=== PATIENT | female | born 1945 | race Caucasian/White ===

== ENCOUNTER 2023-12-31 14:16 | Outpatient (RCR) | payer OTHER, SELFPAY ==
--- NOTE | 2024-01-01 08:24 | CTCCONSULT_ITS ---
[facility] [address] [place], [place] [address] Consultation Note Date: 12/31/2023 MR#: [id number] Name: JOHNNY WILSON : 1945 Dx: C34.12 Malignant neoplasm of upper lobe, left bronchus or lung Attending physician. Michael Zelaya MD Referring physician. 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 History of Present Illness: Patient is an 78-year-old with history of smoking had chest x-ray for esteban st pain and shortness of breath on 11/11/2023 revealing 20 mm pulmonary nodule left midlung 20 mm pulm onary left upper lobe. CT of the chest 11/27/2023 revealed 29 mm pulmonary mass posterior segment lef t upper lobe pulmonary mass 31 mm left lower lobe with subcentimeter nodules in right upper and lower lobe. Underwent biopsy of the left upper lobe nodule 11/27/2023 revealing invasive SCCA moderate dif ferentiated. PD-L1 pending. 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 Squamous SCCA left upper lobe 29 mm. PD-L1 pending. 2. Has additional similar sized lesion lower in left chest and subcentimeter lesions on the right. No peritracheal tracheobronchial or bronchopulmonary adenopathy. 3. PET scan now will be ordered for staging purposes. 4. Medical oncologist Dr. Green will be seeing patient soon. 5. Took the liberty of ordering foundation one this patient which will aid in treatment options for t he medical oncologist. 6. Thank you very much for allowing me to evaluate this patient. Cc: MD Uday Artis MD
== END 2024-01-24 23:59 | disposition home or self-care (01) ==
LOC: SCTC 14:16
PROVIDERS: PCP Student in an Organized Health Care Education/Training Program; Referring Provider Internal Medicine Hematology & Oncology; Visit Provider Radiology Therapeutic Radiology
DX: C34.12 Malignant neoplasm of upper lobe, left bronchus or lung (principal); Z87.891 Personal history of nicotine dependence
CPT/HCPCS: 99213; G0463

== ENCOUNTER → 2024-01-20 | Outpatient (CLI) | payer OTHER, SELFPAY ==
--- NOTE | 2024-01-20 08:45 | XR_ITS ---
EXAMINATION: PET/CT FUSION SKULL TO THIGH EXAM DATE AND TIME: January 20, 2024 0933 hours INDICATIONS: Diagnosis lung cancer, staging prior to treatment, CT chest November 27, 2023 29 mm pulmonary mass posterior segment right upper lobe, 31 mm pulmonary mass lingular segment left upper lobe CTDI:vol (mGy) 5.43 DLP: (mGycm) 495.98 PROCEDURE: 17.2 mCi FDG was administered intravenously To allow for distribution and uptake of radiotracer, the patient was allowed to rest quietly in a shielded room. Imaging was performed on an integrated 16-slice PET/CT scanner, with scanning from the skull base to the mid thigh. Serum blood glucose at the time of the injection was measured 175 mg/dL. CT scanning was performed without oral or intravenous contrast material. FINDINGS: Head and Neck: There is no marco a hypermetabolism in the neck. The visualized portions of the brain are normal in appearance on CT. Chest: Hypermetabolic pulmonary nodule posterior left upper lobe 23 mm 26 mm hypermetabolic pulmonary nodule lingular segment left upper lobe The smaller pulmonary nodules are better depicted on the high resolution CT chest November 27, 2023 No hypermetabolic mediastinal lymphadenopathy Abdomen and Pelvis: There is no marco a hypermetabolism in retroperitoneal or pelvic chains. The spleen is normal in size and FDG avidity. Musculoskeletal: Marrow uptake is within normal range. Severe osteopenia with chronic vertebral body compressions and kyphoplasties IMPRESSION: 23 mm hypermetabolic pulmonary nodule posterior left upper lobe 26 mm hypermetabolic pulmonary nodule lingular segment left upper lobe No hypermetabolic mediastinal lymphadenopathy No findings of metastatic disease in the abdomen or pelvis
== END | disposition home or self-care (01) ==
LOC: CDIM 07:32
PROVIDERS: Referring Provider Radiology Therapeutic Radiology; Visit Provider Radiology Therapeutic Radiology
DX: R91.8 Other nonspecific abnormal finding of lung field (principal); C34.12 Malignant neoplasm of upper lobe, left bronchus or lung
CPT/HCPCS: 78815; A9552

== ENCOUNTER → 2024-01-27 | Outpatient (CLI) | payer OTHER, SELFPAY ==
[2024-01-27 11:18] LABS: Basophils % (Auto) 0 % (0-2.5); Eosinophils # (Auto) 0.1 Thou/mm3 (0.0-0.5); Eosinophils % (Auto) 1 % (0-10); Hemoglobin 14.6 g/dL (12.0-16.0); Immature Granulocytes % (Auto) 0 % (0-0); Immature Granulocytes Auto 0.04 Thou/mm3 (0.00-0.00); Lymphocytes # (Auto) 1.7 Thou/mm3 (1.0-4.8); Lymphocytes % (Auto) 18 % (10-50); Mean Corpuscular HGB Conc 33.2 g/dl (31.0-37.0); Mean Corpuscular Hemoglobin 31.6 pg (25.0-35.0); Mean Corpuscular Volume 95 fL (80-100); Monocytes # (Auto) 0.5 Thou/mm3 (0.0-0.8); Monocytes % (Auto) 6 % (0-12); Neutrophils # (Auto) 6.9 Thou/mm3 (1.8-7.7); Neutrophils % (Auto) 75 % (37-80); Nucleated Red Blood Cell % 0 /100 WBC (0); Platelet Count 232 Thou/mm3 (140-440); RDW Standard Deviation 51.4 fL (36.4-46.3); Red Blood Count 4.62 Miln/mm3 (4.00-5.20); White Blood Count 9.2 Thou/mm3 (3.6-11.0)
[2024-01-27 11:48] LABS: Alanine Aminotransferase 18 U/L (10-49); Albumin, Serum 4.5 gm/dL (3.4-4.8); Alkaline Phosphatase 95 U/L (46-116); Anion Gap 11 (7-16); Aspartate Amino Transferase 15 U/L (0-34); BUN/Creatinine Ratio 16 Ratio (12-20); Bilirubin,Total 0.8 mg/dL (0.3-1.2); Blood Urea Nitrogen 18 mg/dL (9-23); Calcium 10.3 mg/dL (8.3-10.6); Calcium (Corrected) 10.3 mg/dL (8.5-10.1); Chloride 102 mMol/L (98-107); Creatinine (Component) 1.1 mg/dL (0.6-1.3); Globulin 2.3 gm/dL (2.3-3.5); Glucose 137 mg/dL (74-106); Osmolality,Calculated 279 (275-295); Potassium 3.3 mMol/L (3.4-5.1); Sodium 138 mMol/L (136-145); Thyroid Stimulating Hormone 1.61 uIU/mL (0.55-4.78); Total Protein 6.8 gm/dL (5.7-8.2); eGFR 51 See Note
[2024-01-30 06:53] LABS: T3,Total* 92 ng/dL (76-181)
== END | disposition home or self-care (01) ==
PROVIDERS: PCP Student in an Organized Health Care Education/Training Program; Referring Provider Internal Medicine Hematology & Oncology; Visit Provider Internal Medicine Nephrology
DX: I12.9 Hypertensive chronic kidney disease with stage 1 through stage 4 chronic kidney disease, or unspecified chronic kidney disease (principal); N18.9 Chronic kidney disease, unspecified; D63.1 Anemia in chronic kidney disease; C34.12 Malignant neoplasm of upper lobe, left bronchus or lung
CPT/HCPCS: 36415; 80053; 84443; 84480; 85025

== ENCOUNTER → 2024-02-07 | Outpatient (CLI) | payer OTHER, SELFPAY ==
--- NOTE | 2024-02-07 11:00 | XR_ITS ---
Examination: MRI brain with intravenous contrast Technique: Multiple axial sagittal coronal brain MRI images post intravenous ministration 14 cc gadolinium Exam date and time: February 07, 2024 1112 hrs. Indications: Diagnosis malignant neoplasm upper lobe left bronchus or lung 3 months ago, dizziness episodes beginning 3 months ago Findings: Ventricles are not enlarged No mass effect upon the ventricular system 9 x 8 x 9 mm enhancing lesion right temporal lobe tip near the sphenoid ridge, axial image 7, coronal image 8 Right parafalcine parietal convexity enhancing mass, axial image 22, sagittal image 11, 22 x 20 x 18 mm No acute hemorrhage either intra or extra-axial Impression: 9 x 8 x 9 mm mm enhancing lesion right temporal lobe tip near the sphenoid ridge 22 x 20 x 18 mm right parafalcine parietal convexity enhancing mass Both of these lesions may represent meningiomas, other etiologies including metastatic lesions not excluded, clinical correlation advised
== END | disposition home or self-care (01) ==
LOC: SMRI 10:17
PROVIDERS: Referring Provider Internal Medicine Hematology & Oncology; Visit Provider Internal Medicine Hematology & Oncology
DX: G93.89 Other specified disorders of brain (principal); C34.12 Malignant neoplasm of upper lobe, left bronchus or lung
CPT/HCPCS: 70552; A9579

== ENCOUNTER 2024-02-10 07:59 | Outpatient (CLI) | payer OTHER, SELFPAY ==
[2024-02-06 13:40] VITALS: BMI 30.4
[2024-02-09 11:07] LABS: Basophils % (Auto) 0 % (0-2.5); Eosinophils # (Auto) 0.2 Thou/mm3 (0.0-0.5); Eosinophils % (Auto) 2 % (0-10); Hematocrit 41.9 % (36.0-46.0); Immature Granulocytes % (Auto) 1 % (0-0); Immature Granulocytes Auto 0.04 Thou/mm3 (0.00-0.00); Lymphocytes # (Auto) 1.6 Thou/mm3 (1.0-4.8); Lymphocytes % (Auto) 19 % (10-50); Mean Corpuscular HGB Conc 33.4 g/dl (31.0-37.0); Mean Corpuscular Hemoglobin 31.5 pg (25.0-35.0); Mean Corpuscular Volume 94 fL (80-100); Monocytes # (Auto) 0.5 Thou/mm3 (0.0-0.8); Monocytes % (Auto) 6 % (0-12); Neutrophils % (Auto) 72 % (37-80); Nucleated Red Blood Cell % 0 /100 WBC (0); Platelet Count 229 Thou/mm3 (140-440); Red Blood Count 4.44 Miln/mm3 (4.00-5.20); White Blood Count 8.3 Thou/mm3 (3.6-11.0)
[2024-02-09 11:29] LABS: Blood Urea Nitrogen 24 mg/dL (9-23); Creatinine (Component) 1.2 mg/dL (0.6-1.3); Estimated Creatinine Clearance 32.8 mL/min (>60); eGFR 46 See Note
[2024-02-09 12:40] LABS: INR 0.9 (0.9-1.3); Partial Thromboplastin Time 26.1 Seconds (22.0-36.0); Prothrombin Time 10.2 Seconds (9.0-12.2)
[2024-02-10] VITALS (16 sets, daily range): BP systolic 120–162; BP diastolic 55–97; PULSE 58–78; RESP 16–24; TEMP 36.4–36.8; O2SAT 89–98
--- NOTE | 2024-02-10 09:00 | XR_ITS ---
Examination: IR venous implantation Port-A-Cath Ultrasound-guided needle placement right internal jugular vein. Fluoroscopy AP Chest, portable single view Exam date and time: February 10, 2024 0952 hours INDICATIONS: Diagnosis lung cancer, need for long-term intravenous antibiotic therapy. Informed consent provided Technique: A timeout was completed, verifying correct patient, procedure, site, positioning, and special equipment if applicable The patient was placed in a dependent position appropriate for central line placement based on the vein to be cannulated. The patient's right neck was prepped and draped in sterile fashion. Maximum Sterile Barrier Technique used including cap, mask, sterile gown, sterile gloves, and sterile full body drape. If ultrasound technique used: sterile gel and sterile probe covers. Hand Hygiene performed using proper scrub, soap and water, or alcohol-based hand rub. Site right portable apparatus utilized to confirm patency of the right internal jugular vein Utilizing ultrasonographic guidance successful 20-gauge needle puncture into the right internal jugular vein Ultrasound images were recorded and stored. Successful micropuncture with a 21-gauge needle was performed. 0.18 wire guide was introduced into the IVC under fluoroscopic guidance. Blunt dissection utilized for subcutaneous pocket and the upper right chest Port-A-Cath reservoir placed in the pocket and connected to 23 cm 8 [place] Port-A-Cath line placed through a venous sheath into the superior vena cava under fluoroscopic guidance Perfusion to the extremity distal to the point of catheter insertion was checked and found to be adequate The attending radiologist was present for the entire procedure Estimated blood loss2 cc. Findings: Under fluoroscopy, the tip of the Port-A-Cath is in good position in the vena cava. Portable chest x-ray, post Port-A-Cath placement, as ordered. Impression: Successful ultrasound-guided needle placement right internal jugular vein. Successful IR venous implantation Port-A-Cath Fluoroscopy 0.1 minute radiation dose 2.36 milligray 1 spot portable chest film. AP portable chest completion procedure demonstrates satisfactory position Port-A-Cath tip SVC. May use Port-A-Cath
[2024-02-10] MEDS: SODIUM CHLORIDE 0.9% 500 ML 500 ML 20 ML IV (10:00)
[2024-02-10] MEDS: ceFAZolin 1 GM in SODIUM CHLORIDE 0.9% 100 ML IV (10:05)
[2024-02-10] MEDS: fentaNYL CIT INJ 50 mCg/ML AMP 2ML 75 MCG IVP (10:40)
[2024-02-10] MEDS: LIDOCAINE INJ PF 1% 30 ML VIAL 11 ML INFL (10:42)
[2024-02-10] MEDS: LIDOCAINE 1% W/EPI 1:100K 20 ML VIAL INFL (10:42)
[2024-02-10] MEDS: HEPARIN SOD LOCK SYR 100 UNIT/ML 500 UNIT STFIELD (10:42)
[2024-02-10] MEDS: ceFAZolin INJ 1 GM VIAL STFIELD (10:42)
--- NOTE | 2024-02-10 11:38 | PC.NURSE ---
1113 patient is awake,alert, breathing unlabored, s/p port placement , dressing to right upper chest dry with no bleeding, report given to Marty GUZMAN, patient to recovery for 1 hr.
== END 2024-02-10 12:31 | disposition home or self-care (01) ==
PROVIDERS: Radiology Diagnostic Radiology; PCP Internal Medicine Hematology & Oncology; Referring Provider Internal Medicine Hematology & Oncology; Visit Provider Internal Medicine Hematology & Oncology
DX: C34.12 Malignant neoplasm of upper lobe, left bronchus or lung (principal); Z01.818 Encounter for other preprocedural examination
CPT/HCPCS: 36558; 36415; 76937; 77001; 82565; 84520; 85025; 85610; 85730; C1769; C1788; C1894; J0690; J1642; J3010; J3490; J7040; J7050

== ENCOUNTER → 2024-02-20 | Outpatient (CLI) | payer OTHER, SELFPAY ==
--- NOTE | 2024-02-20 08:55 | XR_ITS ---
Examination: IR staple removal at Port-A-Cath insertion site Exam date and time: February 20, 2024 0855 hrs. Indications: Status post Port-A-Cath insertion February 10, 2024, patient returns for removal of staple closure devices at the Port-A-Cath insertion site Technique And Findings: Informed consent provided. Timeout performed. Skin prepped over the Port-A-Cath insertion site and sterile drape applied hand hygiene Successful removal of the closure chyna at the Port-A-Cath insertion site Estimated blood loss 0 cc Patient instable condition at completion procedure Impression: Successful IR staple removal at the Port-A-Cath incision site
== END | disposition home or self-care (01) ==
PROVIDERS: PCP Student in an Organized Health Care Education/Training Program; Referring Provider Internal Medicine Hematology & Oncology; Visit Provider Internal Medicine Hematology & Oncology
DX: Z48.02 Encounter for removal of sutures (principal)

== ENCOUNTER 2024-02-24 10:58 | Outpatient (RCR) | payer OTHER, SELFPAY ==
--- NOTE | 2024-01-27 21:02 | CTCCONSULT_ITS ---
[address] [address] RE: JOHNNY WILSON.: 1945 AGE: 78 DATE OF CONSULTATION: 01/27/2024 DIAGNOSIS: Malignant neoplasm of upper lobe, left bronchus or lung lung cancer C34.12 REFERRING PHYSICIAN: Rocky Rhodes PRIMARY PHYSICIAN :Gomez Green REASON FOR CONSULTATION: Establishing care for left lung cancer HISTORY OF PRESENT ILLNESS: 78-year-old woman with extensive smoking history with a new diagnosis of lung cancer. Patient has be en smoking about 2 packs a day for 50 years and recently reduced to 1 pack a day. Patient is a Veracyte nt smoker. 01/20/[address] scan showed 2 nodules in the left upper lobe. 23 mm hypermetabolic pulmonary nodul e in the posterior left upper lobe and 26 mm hypermetabolic pulmonary nodule lingular segment left up per lobe no other hypermetabolic mediastinal lymphadenopathy 12/31/2023 pathology showed left lung biopsy with squamous cell cancer. No targetable mutations. Lexie or mutation burden high PAST MEDICAL HISTORY: Obesity FAMILY HISTORY: Cancer History - Father - SKIN Cancer History - - MATERNAL GRANDMOTHER UTERINE SOCIAL HISTORY: Occupational History - RETIRED TEACHER Education Level - College Graduate, Master's degree Exercise Regularly - No Marital Status - Single Tobacco Use Note - SMOKED 1 PPD X 50YRS - SMOKING 10 CIGARETTES/DAY NOW ETOH Use Note - DENIES Drug Note - DENIES Social History Note 2 - LIVES WITH SON PULMONOLOGY PHYSICIAN HISTORY: Menarche - Age - 11 Menopause1 - 1996 - 2 Live Births - 2 Age 1st - 25 Gynecological Note - 2 MISCARRIAGES MEDICATIONS: albuterol sulfate losartan furosemide traZODone lorazepam Paxil [paroxetine hcl] ALLERGIES: No Known Drug Allergies REVIEW OF SYSTEMS SECURITY SYSTEM ENGINEER: No headache, seizures or blurring of vision. GI: No nausea, vomiting, diarrhea or constipation. CVS: No palpitations or angina pains. Respiratory: No cough, chest pain or shortness of breath. VITAL SIGNS: Date 01/27/2024 Time 8:55 AM Vital Signs, Weight and PS ? ??T (F) (F) 97 ??P 80 ??B/P (mmHg) 135/75 ??Height (in) (inch) 61 ??Weight (lb) (lb) 156 ??BSA(D) (m*2) 1.7 ??Percent Weight Change -3 PHYSICAL EXAMINATION: Alert oriented x 4 chest is clear to auscultation. No wheezes or rales audible. CVS: Rhythm regular, no murmurs or gallops present. Abdomen is soft. No hepatosplenomegaly. Extremities: No pedal edema or cyanosis. Ecog-2 LABORATORY DATA: Date 01/27/2024 Time 10:20 AM CBC ? ??RDW (RBC DISTRIBUTION WDTH) SD (fl) 51.4 H ??IMMATURE GRANULOCYTES, AUTO (Thou/mm3) 0.04 H Chemistry ? ??GLUCOSE,RANDOM (mg/dL) 137 H ??POTASSIUM (mmol/L) 3.3 L ??CALCIUM SERUM (CORRECTED) (mg/dL) 10.3 H ? ??Initials ZZZ Other Labs ? ??eGFR (See Note) 51 L ASSESSMENT: 1) T3 N0 M0 invasive squamous cell cancer at least stage II left upper lobe cancer Patient have 2 lung nodules in the same lobe thus making T3 no lymph nodes seen in the PET CT scan Patient have a chronic smoking history as well as advanced age PLAN: ??PFT Referral to cardiothoracic surgeon. Patient is a high risk for any surgical intervention but will ge t opinion. Refer to radiation oncology for possible EBRT for curative intent Patient cannot get any curative therapy then we will treat with Keytruda as palliative therapy Not a good candidate for concurrent chemoradiation or chemotherapy secondary to her advanced age and comorbidities 2) Hypercalcemia likely from malignancy -asymptomatic will repeat labs. Will get IV fluids in the in fusion room. Repeat calcium and if it persistently high will get her Reclast. 3) Chronic smoker and current smoker-counseled but patient is not ready to quit 4) Obesity diet and exercise 5) Hypokalemia patient's potassium is low. My nurse will contact the patient to advise her to start taking potassium 10 mill equivalent daily for 1 week and follow-up with the primary care SERENITY ORDERS: Follow Up 3 Week + Comprehensive Metabolic Panel - 12 + CBC with Auto Diff Thyroid Stimulating Hormone + Assay Triiodothyronine (T3) MRI + Brain + With Contrast RETURN TO CLINIC: cc: Donal Green, Referring: Rocky Rhodes Electronically Signed {Object.Sanct_Date} at {Object.Sanct_Time} {Object.Sanct_ID*PnP.NameFL@}, {Object.Sanct_ID*PnP.Suffix@U} Patient: JOHNNY WILSON : 1945 MR#: [id number] Account: [id number] FOLLOW UP NOTE Page 3 of 4
--- NOTE | 2024-01-30 16:29 | CTCTXPLN_ITS ---
[facility] [address] [place], [place] [address] Physician Clinical Treatment Planning Note Date of Service: 01/30/2024 Name: JOHNNY WILSON : 1945 The patient has agreed to proceed with Radiation therapy. Tests and supporting medical records were interpreted to assist in defining the tumor location and extent of disease. Further imaging will be necessary to contour and delineate the volume to which the XRT will be provided. A. Treatment Intent: Curative B. C. D. Modality: 6 MV E. Requested Technique: SBRT F. Treatment Site: Left upper lobe G. Critical structures to be contoured on plan: H. In order to accomplish this plan, I am ordering/Prescribing the followin. Simulations (s) will be performed to accomplish a reproducible treatment position, to determine op timal treatment portals/beam arrangements, to design beam modifying devices and verify treatment port als on patient prior to the commencement of Radiation Therapy. 2. Devices; for immobilization and beam shaping: Vac-Katarzyna 3. CT Guidance for placement of XRT griffith Scan area: 4. Portal images Frequency: 5. Invivo transit dose measurement once per week on all VMAT patients. 6. Special Physics Consult Requested for: 7. Other requests: Special procedure for SBRT I. Dose Objectives: Curative Electronically signed by: Eugene Dowell M.D. 01/30/2024 4:26 PM
--- NOTE | 2024-01-30 16:42 | CTCTXPLNST_ITS ---
2Radiation Oncology Treatment Planning Sheet Name: JOHNNY WILSON MR#: [id number] : 1945 Dx: C34.12 Malignant neoplasm of upper lobe, left bronchus or lung Date of Service: 01/30/2024 Account #: ?? Pt Treatment Intent: curative palliative other: Stage: Procedure CPT # Ordered Spec. Procedure 63401 1 Fermin Complex (set-up) 95455 Chest/vaklokT1- T 10 2 Fermin Simple 56789 IMRT Plan 36410 2 MLC Devices VMAT 73581 12 Fermin 3 D 24055 TRTMT dev Complex 76304 vaklok 1 TRTMT dev simple 31693 Basic Bandar 14834 14 Special Dosimetry 96438 Spec Physics 65185 Port Films 97316 SRS Cranial/1FX 86105 SBR 5 FX or Less /ex: 5 = 5 fx 54172 2 sites (5 each )5000 10 IMRT Simple 69946 IMRT Complex 13195 IGRT 11530 10 Rad del com 6- 55886 Rad del com 01-12 77561 Cont Med Physics 44446 4 Treatment Planning 62138 2 Rad del com 20 mev 62560 Rad del inter 08-03 26765 Rad del inter 01-12 19336 Rad del simple 6- 85485 Rad del simple 01-12 16987 Special Port Plan 82335 TRTMT dev inter 05371 Isodose Complex 42383 Isodose simple 93419 Resp Motion Mgmt Simulation 04271 Placement of Fiducial Markers 13286 Electronically Signed By: Eugene Dowell MD, MICAHR 01/30/2024 4:39 PM
== END 2024-02-24 23:59 | disposition home or self-care (01) ==
LOC: SCTC 10:58
PROVIDERS: PCP Student in an Organized Health Care Education/Training Program; Referring Provider Student in an Organized Health Care Education/Training Program; Visit Provider Internal Medicine Hematology & Oncology
DX: Z51.0 Encounter for antineoplastic radiation therapy (principal); C34.12 Malignant neoplasm of upper lobe, left bronchus or lung; F17.210 Nicotine dependence, cigarettes, uncomplicated; E87.6 Hypokalemia; E66.9 Obesity, unspecified; Z68.29 Body mass index [BMI] 29.0-29.9, adult
CPT/HCPCS: 77014; 77290; 77300; 77301; 77334; 77338; 77373; 77470; 99213; G0463

== ENCOUNTER → 2024-02-26 | Outpatient (CLI) | payer OTHER, SELFPAY ==
[2024-02-26 12:42] LABS: Albumin, Serum 4.4 gm/dL (3.4-4.8); Anion Gap 7 (7-16); BUN/Creatinine Ratio 15 Ratio (12-20); Blood Urea Nitrogen 17 mg/dL (9-23); Carbon Dioxide 26.4 mMol/L (20.0-31.0); Chloride 105 mMol/L (98-107); Creatinine (Component) 1.1 mg/dL (0.6-1.3); Glucose 149 mg/dL (74-106); Osmolality,Calculated 280 (275-295); Phosphorous 2.7 mg/dL (2.4-5.1); Potassium 4.2 mMol/L (3.4-5.1); Sodium 138 mMol/L (136-145); eGFR 51 See Note
== END | disposition home or self-care (01) ==
LOC: COPL 11:52
PROVIDERS: PCP Student in an Organized Health Care Education/Training Program; Referring Provider Student in an Organized Health Care Education/Training Program; Visit Provider Student in an Organized Health Care Education/Training Program
DX: I12.9 Hypertensive chronic kidney disease with stage 1 through stage 4 chronic kidney disease, or unspecified chronic kidney disease (principal); N18.9 Chronic kidney disease, unspecified
CPT/HCPCS: 36415; 80069

== ENCOUNTER 2024-03-08 16:56 | Emergency (ER) | payer OTHER, SELFPAY ==
[2024-03-08 17:06] VITALS: BP 171/93; PULSE 78; RESP 20; TEMP 36.7; O2SAT 93; BMI 31.2
[2024-03-08 17:44] VITALS: BP 149/68
--- NOTE | 2024-03-08 17:48 | PD.EDEXREM ---
ED Extremity Problem RME/HPI General Chief complaint: Extremity Problem,Nontraumatic Stated complaint: RIGHT LEG PAIN FROM KNEE DOWN Time Seen by Provider: 03/08/24 17:12 Arrival date/time: 03/08/24 16:56 78-year-old female reports with complaints of sudden onset of severe muscle cramping of the right lower leg. Patient states while walking she caught a cramp in the leg that shot up to her thigh. She denies any bruising swelling injury trauma numbness tingling decrease in range of motion redness or rash. Patient states while sitting the emergency department the pain has resolved. She also denies shortness of breath or chest pain weakness fatigue fever chills. Patient denies taking any medications for pain Limitations: no limitations Related Data Home Medications ?Medication ?Instructions ?Recorded ?Confirmed albuterol sulfate 2.5 mg/3 mL 3 ml Q6H PRN Shortness of Breath 11/07/21 02/10/24 (0.083 %) solution for nebulization ipratropium bromide 21 mcg (0.03 2 spray intranasal BID PRN 11/07/21 02/10/24 %) nasal spray Congestion multivitamin 1 tab QDAY 11/07/21 02/10/24 allopurinol 300 mg tablet 300 mg PO DAILY 11/27/23 02/10/24 amlodipine 5 mg tablet 10 mg PO QDAY 11/27/23 02/10/24 lorazepam 0.5 mg tablet 0.5 mg PO DAILY PRN Anxiety 11/27/23 02/10/24 trazodone 50 mg tablet 50 mg PO HS 11/27/23 02/10/24 furosemide 20 mg tablet (Lasix) 20 mg PO QDAY 02/10/24 02/10/24 losartan 25 mg tablet 25 mg PO QDAY 02/10/24 02/10/24 paroxetine HCl 30 mg tablet 30 mg PO QDAY 02/10/24 02/10/24 potassium chloride 10 mEq 10 meq PO QDAY 02/10/24 02/10/24 tablet,extended release Allergies Allergy/AdvReac Type Severity Reaction Status Date / Time No Known Allergies Allergy Verified 03/08/24 16:58 Review of Systems Constitutional Constitutional: Denies chills and Denies fatigue Cardiovascular Cardiovascular: Denies chest pain and Denies dyspnea Respiratory Respiratory: Denies cough and Denies dyspnea Gastrointestinal Gastrointestinal: Denies nausea and Denies vomiting Musculoskeletal Musculoskeletal: Reports arthralgias, Denies deformity, Denies joint swelling, Denies numbness and Denies tingling Integumentary/Breasts Skin/Breast: Denies erythema, Denies rash, Denies skin pain, Denies unusual bruising and Denies wounds Neurologic Neurologic: Denies numbness and Denies tingling Endocrine Endocrine: Denies fatigue Hematologic/Lymphatic Hematologic/Lymphatic: Denies easy bleeding and Denies easy bruising Past Medical History Past Medical History NEUROLOGIC: Negative Neurological Disorders, Cerebrovascular Accident, Dementia, Alzheimer's Disease, Seizures or Epilepsy CARDIAC: Positive Cardiac Arrhythmia, Atrial Fibrillation (per pt sometimes watch alerts afib, lei aware and appointment made), Hypercholesterolemia and Hypertension; Negative Cardiac Disorders, Myocardial Infarction, Angina, Congestive Heart Failure or Edema RESPIRATORY: Positive Chronic Obstructive Pulmonary Disease (COPD) and Bronchitis; Negative Asthma or Sleep Apnea GASTROINTESTINAL: Negative Gastrointestinal Disorders GENITOURINARY: Positive Renal Disease; Negative Genitourinary Disorders or Kidney Stones REPRODUCTIVE: Positive Previous Pregnancies (2 cesection) MUSCULOSKELETAL: Positive Osteoporosis, Fractures (right hip and crush vertabrea) and Osteomyelitis; Negative Musculoskeletal Disorders ENT: Positive Cataracts ENDOCRINE: Positive Diabetes Mellitus Type 2 and Hypothyroidism (during ); Negative Diabetes Mellitus Type 1 HEMATOLOGIC: Negative Blood Disorders or Anemia PSYCHO/SOCIAL: Positive Depression, Anxiety and Post Traumatic Stress Disorder; Negative Schizophrenia or Bipolar Disorder OTHER HISTORY: Positive Falls and Lung Cancer (secondary to skin cancer); Negative Autoimmune Disease, Blood Transfusions, Blood Transfusion Reaction, Anesthesia Reactions, Organ Transplant, Radiation Therapy, MRSA or Chicken Pox ([place]) Family History FAMILY HISTORY: Negative Family Psychiatric Problems, Family Respiratory Disorders, Family Cardiac Disorders, Family Gastrointestinal Problems, Family Cancer (father skin cancer), Family Surgery or Family Anesthesia Reaction Surgical History SURGICAL: Positive Ear Surgery (in kindergarden), Tonsillectomy, Gastric Bypass Surgery, Hysterectomy and Section; Negative Cardiac Surgery, Pacemaker or Organ Transplant Social History SMOKING STATUS: Never smoker ED Exam General Limitations: Present no limitations General appearance: Present alert and in no apparent distress Expanded Lower Extremity Exam Hip/Pelvis exam: Present normal inspection and full ROM Upper leg exam: Present normal inspection and full ROM Knee exam: Present normal inspection and full ROM Lower leg exam: Present normal inspection and full ROM; Absent tenderness, swelling, ecchymosis, deformity or palpable cord Ankle exam: Present normal inspection and full ROM Foot/toe exam: Present normal inspection and full ROM Neurovascular/Tendon exam: Present normal capillary refill and pulse deficit Gait: observed and normal Neurological Exam Neurological exam: Present alert, oriented X3 and CN II-XII intact Psychiatric Psychiatric exam: Present normal affect and normal mood Skin Skin exam: Present warm, dry, intact and normal color Course Course Course Narrative: 78 y.o. female reports with c/o right lower leg pain. Right leg exam normal with no evidence of DVT pain resolved while patient in exam room. Patient is stable nontoxic-appearing with stable vital signs no cardiac or respiratory complaints. Differential diagnosis includes muscle cramping versus low potassium versus trauma versus injury. Quality Measures none Vital Signs Vital signs: Vital Signs Temperature 98.1 F 03/08/24 17:06 Pulse Rate 78 03/08/24 17:06 Respiratory Rate 20 03/08/24 17:06 Blood Pressure 171/93 H 03/08/24 17:06 Pulse Oximetry (%) 93 L 03/08/24 17:06 Oxygen Delivery Method Room Air 03/08/24 17:06 Extremity Problem Patient data External records reviewed:: None Clinical information provided by:: patient Social determinants that could affect healthcare access:: none Patient has the following chronic illnesses:: none How is presenting disease/condition affected by chronic disease/condition?: no chronic disease Evaluation data The following diagnostics were reviewed and interpreted by me:: other (specify) Lab and/or radiology exams considered but not ordered:: none Interpretation Summary: none Medications / Prescriptions Medications or Prescriptions considered but not ordered:: none Medication administrations:: none Consultations Consultation(s) initiated? (list below): No Diagnosis Most likely diagnosis given after review of the tests above:: Muscle cramp Admission Indicated Admission indicated?: not indicated Admission Request Was there a request for admission?: No Disposition Plan Disposition Plan: Discharge Discharge Attestation Discharge Attestation: The patient and all family members were given an opportunity to ask questions and understood the discharge instructions. Discharge instructions specifically effects, indications for sooner follow up or return to the emergency department, and the expected course of current diagnosis. Patient condition: Stable Discharge Plan Plan Patient Disposition: HOME (Self Care) Prescriptions/Referrals Prescriptions/Med Rec: No Action multivitamin Tablet 1 tab QDAY albuterol sulfate 2.5 mg /3 mL (0.083 %) solution for nebulization 3 ml Q6H PRN (Reason: Shortness of Breath) Patient Comments: USE 1 VIAL VIA NEBULZIER EVERY 6 HOURS NEEDED ipratropium bromide 21 mcg (0.03 %) spray,non-aerosol 2 spray INTRANASAL BID PRN (Reason: Congestion) Patient Comments: SPRAY 2 SPRAYS IN EACH NOSTRIL TWICE A DAY FOR 90 DAYS trazodone 50 mg Tablet 50 mg PO HS amlodipine 5 mg Tablet 10 mg PO QDAY lorazepam 0.5 mg Tablet 0.5 mg PO DAILY PRN (Reason: Anxiety) allopurinol 300 mg Tablet 300 mg PO DAILY potassium chloride 10 mEq Tablet Extended Release 10 meq PO QDAY paroxetine HCl 30 mg Tablet 30 mg PO QDAY losartan 25 mg Tablet 25 mg PO QDAY furosemide [Lasix] 20 mg Tablet 20 mg PO QDAY Problem List Clinical Impression: Muscle pain Patient/Caregiver Discharge Instructions Discharge Activity: activity as tolerated Education Materials: ED Myalgias Additional Instructions: Take medication such as Tylenol ibuprofen as needed for pain follow-up with your primary care provider as needed. Return to emergency department if symptoms should worsen Print Language: Armenian Stand Alone Forms: Theresa Award Info., Patient Portal Info Letter
== END 2024-03-08 18:18 | disposition home or self-care (01) ==
LOC: SERX 18:41
PROVIDERS: Emergency Provider Emergency Medicine; PCP Physician Assistant
DX: M79.18 Myalgia, other site (principal)
CPT/HCPCS: 99281

== ENCOUNTER 2024-03-25 10:36 | Outpatient (RCR) | payer OTHER, SELFPAY ==
--- NOTE | 2024-03-23 12:51 | CTCTRTNOTE_ITS ---
[facility] [address] [place], [place] [address] Weekly Management Date: 03/23/2024 ?? Name: JOHNNY WILSON : 1945 A. Patient is currently at thousand to lingular site. Completed 5000 to the left upper lobe. B. Patient is tolerating treatment well. BP 172/80 C. Resume radiation therapy. Completes XRT to both sites by next week. Scheduled to receive Keytruda soon. Has port Electronically signed by: Eugene Dowell M.D. 03/23/2024 12:48 PM
== END 2024-03-26 23:59 | disposition home or self-care (01) ==
LOC: SCTC 10:36
PROVIDERS: PCP Student in an Organized Health Care Education/Training Program; Referring Provider Student in an Organized Health Care Education/Training Program; Visit Provider Radiology Therapeutic Radiology
DX: Z51.0 Encounter for antineoplastic radiation therapy (principal); C34.12 Malignant neoplasm of upper lobe, left bronchus or lung
CPT/HCPCS: 77336; 77373

== ENCOUNTER → 2024-04-05 | Outpatient (CLI) | payer OTHER, SELFPAY ==
[2024-04-05 13:27] LABS: Uric Acid 6.8 mg/dL (3.1-7.8)
== END | disposition home or self-care (01) ==
PROVIDERS: PCP Student in an Organized Health Care Education/Training Program; Referring Provider Student in an Organized Health Care Education/Training Program; Visit Provider Student in an Organized Health Care Education/Training Program
DX: I12.9 Hypertensive chronic kidney disease with stage 1 through stage 4 chronic kidney disease, or unspecified chronic kidney disease (principal); N18.9 Chronic kidney disease, unspecified
CPT/HCPCS: 36415; 84550

== ENCOUNTER 2024-04-23 08:53 | Outpatient (RCR) | payer OTHER, SELFPAY ==
--- NOTE | 2024-03-30 13:17 | CTCTRTNOTE_ITS ---
[facility] [address] [place], [place] [address] Weekly Management Date: 03/30/2024 ?? Name: JOHNNY WILSON : 1945 A. Patient who completed 5000 cGy to the left upper lobe is finishing 5000 cGy to the left lingular area today. Both were treated in 5 fractions via SBRT. Patient tolerated treatment well and will be seen in 2 weeks for follow-up. Electronically signed by: Eugene Dowell M.D. 03/30/2024 1:15 PM
[2024-04-02 10:53] LABS: Basophils % (Auto) 0 % (0-2.5); Eosinophils % (Auto) 1 % (0-10); Hematocrit 41.9 % (36.0-46.0); Hemoglobin 14.7 g/dL (12.0-16.0); Immature Granulocytes % (Auto) 0 % (0-0); Immature Granulocytes Auto 0.02 Thou/mm3 (0.00-0.00); Lymphocytes # (Auto) 0.7 Thou/mm3 (1.0-4.8); Lymphocytes % (Auto) 11 % (10-50); Mean Corpuscular HGB Conc 35.1 g/dl (31.0-37.0); Mean Corpuscular Hemoglobin 32.6 pg (25.0-35.0); Mean Corpuscular Volume 93 fL (80-100); Monocytes # (Auto) 0.5 Thou/mm3 (0.0-0.8); Monocytes % (Auto) 8 % (0-12); Neutrophils # (Auto) 5.1 Thou/mm3 (1.8-7.7); Neutrophils % (Auto) 80 % (37-80); Nucleated Red Blood Cell % 0 /100 WBC (0); Platelet Count 211 Thou/mm3 (140-440); RDW Standard Deviation 48.8 fL (36.4-46.3); Red Blood Count 4.51 Miln/mm3 (4.00-5.20); White Blood Count 6.4 Thou/mm3 (3.6-11.0)
[2024-04-02 11:21] LABS: Alanine Aminotransferase 14 U/L (10-49); Albumin, Serum 4.1 gm/dL (3.4-4.8); Albumin/Globulin Ratio 1.7 (1.2-2.2); Alkaline Phosphatase 84 U/L (46-116); Anion Gap 10 (7-16); Aspartate Amino Transferase 14 U/L (0-34); BUN/Creatinine Ratio 16 Ratio (12-20); Bilirubin,Total 0.4 mg/dL (0.3-1.2); Blood Urea Nitrogen 18 mg/dL (9-23); Calcium 9.4 mg/dL (8.3-10.6); Calcium (Corrected) 9.4 mg/dL (8.5-10.1); Carbon Dioxide 22.4 mMol/L (20.0-31.0); Chloride 106 mMol/L (98-107); Creatinine (Component) 1.1 mg/dL (0.6-1.3); Free T3 3.4 pg/mL (2.3-4.2); Globulin 2.4 gm/dL (2.3-3.5); Glucose 205 mg/dL (74-106); Osmolality,Calculated 283 (275-295); Potassium 3.5 mMol/L (3.4-5.1); Sodium 138 mMol/L (136-145); Thyroid Stimulating Hormone 2.14 uIU/mL (0.55-4.78); Total Protein 6.5 gm/dL (5.7-8.2); eGFR 51 See Note
--- NOTE | 2024-04-04 17:20 | CTCFLWUP_ITS ---
Patient: JOHNNY WILSON : 1945 Page 2 of 4 FOLLOW UP NOTE DATE OF SERVICE: 03/30/2024 NAME: JOHNNY WILSON ACCOUNT: [id number] : 1945 AGE: 78 INTERVAL HISTORY: Patient is here to follow-up. Patient have 2 lung lesions for which patient could not get surgery. Patient was to be started on Keytruda as palliative treatment. ONCOLOGY HISTORY: DIAGNOSIS: Malignant neoplasm of upper lobe, left bronchus or lung [ICD10] C34.12 DATE OF DIAGNOSIS: STAGE/TNM: TREATMENT HISTORY: Care?Plan Start?Date Cycle Day Intent KEYTRUDA?200 04/05/2024 1 21 Palliative 5000 centigrade to the left upper lobe and 5000 centigrade to the left lingular area in 5 fractions done by radiation oncology HISTORY OF PRESENT ILLNESS: 78-year-old woman with extensive smoking history with a new diagnosis of lung cancer. Patient has been smoking about 2 packs a day for 50 years and recently reduced to 1 pack a day. Patient is a current smoker. 01/20/[address] scan showed 2 nodules in the left upper lobe. 23 mm hypermetabolic pulmonary nodule in the posterior left upper lobe and 26 mm hypermetabolic pulmonary nodule lingular segment left upper lobe no other hypermetabolic mediastinal lymphadenopathy 12/31/2023 pathology showed left lung biopsy with squamous cell cancer. No targetable mutations. Tumor mutation burden high OTHER MEDICAL HISTORY/CONDITIONS: Squamous cell left lung - dx 11/27/23 HTN COPD HX BLADDER CANCER - TREATED AGO RIGHT HIP SURGERY - 21/2 YRS AGO UTERINE ABLATION - 7 YRS AGO CRUSHED VERTERAE REPAIN - 7 YRS AGO X 2 - 50 YRS AGO BILAT TUBAL LIGATION APPENDECTOMY - CHILD T and A CHILD FAMILY HISTORY: Cancer History - Father - SKIN Cancer History - - MATERNAL GRANDMOTHER UTERINE SOCIAL HISTORY: Occupational History - RETIRED TEACHER Education Level - College Graduate, Master's degree Exercise Regularly - No Marital Status - Single Tobacco Use Note - SMOKED 1 PPD X 50YRS - SMOKING 10 CIGARETTES/DAY NOW ETOH Use Note - DENIES Drug Note - DENIES 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 albuterol sulfate - 2.5 mg /3 mL (0.083 4 ) Every 4 Hours 2. furosemide - 20 mg 1 tab Every other day 3. Leg Cramp Relief - 2 Capsule As needed 4. lorazepam - 0.5 mg 1 tab As directed 5. losartan - 50 mg 0.5 tab Daily 6. Paxil - 10 mg 1 tab Daily 7. traZODone - 150 mg 1 tab Every day before sleep Medications Last Reconciled by Helen Arriola MA on 03/30/2024 ALLERGIES: No Known Drug Allergies REVIEW OF SYSTEMS: A complete 14-point review of systems was performed and is negative except as noted in interval history. PHYSICAL EXAMINATION: VITAL SIGNS: Temperature?98.5, B/P?141/68, Oxygen?Saturation?95% Weight?156?lbs (Change?since?03/16/24:?-5?lbs) PAIN: 0 - No pain ECOG Performance Status: 2 - Symptomatic; ambulatory; capable of self-care; >50% of waking hrs. not in bed GENERAL APPEARANCE: Appears well, in no apparent distress, appropriately interactive. HEENT: Normocephalic, no temporal wasting, normal conjunctiva, no scleral icterus, normal hearing, lips without lesions, neck normal range of motion. CARDIOVASCULAR: Not assessed. PULMONARY: Normal respiratory effort, no respiratory distress or use of accessory muscles, speaking in full sentences, no tachypnea. EXTREMITIES: No pedal edema or cyanosis. SKIN: Normal skin appearance. NEUROLOGIC: Alert and oriented x4. PSHYCHIATRIC: Appropriate affect, mood normal, behavior normal, intact thought and speech. LABORATORY DATA: I have personally reviewed and interpreted each of the patient?s relevant lab tests, abnormal findings are below: Date 04/02/24 ??GLUCOSE,RANDOM?(mg/dL) 205?H ??BLOOD?UREA?NITROGEN?(mg/dL) 18 ??CREATININE?(mg/dL) 1.10 ??SODIUM?(mmol/L) 138 ??POTASSIUM?(mmol/L) 3.5 ??CHLORIDE?(mmol/L) 106 ??CrCl?(CandG)?(ml/min) 37.88 ??AST/SGOT?(Unit/L) 14 ??ALT/SGPT?(Unit/L) 14 ??ALKALINE?PHOSPHATASE?(Unit/L) 84 ??BILIRUBIN,?TOTAL?(mg/dL) 0.4 ??PROTEIN?TOTAL?(gm/dl) 6.5 ??ALBUMIN,?SERUM?(gm/dl) 4.1 ??GLOBULIN?(gm/dl) 2.4 ??ALBUMIN/GLOBULIN?RATIO 1.7 ??CALCIUM,?SERUM?(mg/dL) 9.4 ??CALCIUM?SERUM?(CORRECTED)?(mg/dL) 9.4 ASSESSMENT/PLAN: 1) 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 Will get IV fluids in the infusion room. Repeat calcium and if it persistently high will get her Reclast. 3) Chronic smoker and current smoker-counseled but patient is not ready to quit 4) Obesity diet and exercise 5) Hypokalemia -patient was treated with the KCl CBC CMP TSH and T4 Continue Keytruda for 2 years RETURN TO CLINIC: 4 to 6 weeks BILLING AND COMPLIANCE: I reviewed external records from providers outside my specialty as summarized above. I spent a total of 50 minutes on this patient?s care on the day of their visit excluding time spent related to any billed procedures. This time includes time spent with the patient as well as time spent documenting in the medical record, reviewing patients records and tests, obtaining history, placing orders, communicating with other healthcare professionals, counseling the patient, family or caregiver, and/or care coordination for the diagnoses above. Electronically Signed by: Gomez Green MD T: 5:17 PM CC: PCP: Aleta Gavin Referring: Rocky Rhodes This document was completed utilizing speech recognition software. Grammatical errors, random word insertions, pronoun errors, and incomplete sentences are an occasional consequence of this system due to software limitations, ambient noise, and hardware issues. Any formal questions or concerns about the content, text or information contained within the body of this dictation should be directly addressed to the provider for clarification.
[2024-04-23 10:18] LABS: Basophils % (Auto) 1 % (0-2.5); Eosinophils # (Auto) 0.1 Thou/mm3 (0.0-0.5); Eosinophils % (Auto) 1 % (0-10); Hematocrit 42.4 % (36.0-46.0); Hemoglobin 14.6 g/dL (12.0-16.0); Immature Granulocytes % (Auto) 0 % (0-0); Immature Granulocytes Auto 0.02 Thou/mm3 (0.00-0.00); Lymphocytes % (Auto) 17 % (10-50); Mean Corpuscular HGB Conc 34.4 g/dl (31.0-37.0); Mean Corpuscular Volume 93 fL (80-100); Monocytes # (Auto) 0.4 Thou/mm3 (0.0-0.8); Monocytes % (Auto) 6 % (0-12); Neutrophils # (Auto) 4.3 Thou/mm3 (1.8-7.7); Neutrophils % (Auto) 74 % (37-80); Nucleated Red Blood Cell % 0 /100 WBC (0); Platelet Count 192 Thou/mm3 (140-440); RDW Standard Deviation 46.9 fL (36.4-46.3); Red Blood Count 4.56 Miln/mm3 (4.00-5.20); White Blood Count 5.8 Thou/mm3 (3.6-11.0)
[2024-04-23 10:40] LABS: Alanine Aminotransferase 13 U/L (10-49); Albumin, Serum 4.2 gm/dL (3.4-4.8); Albumin/Globulin Ratio 1.7 (1.2-2.2); Alkaline Phosphatase 94 U/L (46-116); Anion Gap 8 (7-16); Aspartate Amino Transferase 19 U/L (0-34); BUN/Creatinine Ratio 24 Ratio (12-20); Bilirubin,Total 0.7 mg/dL (0.3-1.2); Blood Urea Nitrogen 26 mg/dL (9-23); Calcium 9.7 mg/dL (8.3-10.6); Calcium (Corrected) 9.7 mg/dL (8.5-10.1); Carbon Dioxide 25.1 mMol/L (20.0-31.0); Chloride 106 mMol/L (98-107); Creatinine (Component) 1.1 mg/dL (0.6-1.3); Globulin 2.5 gm/dL (2.3-3.5); Glucose 119 mg/dL (74-106); Osmolality,Calculated 283 (275-295); Sodium 139 mMol/L (136-145); Thyroid Stimulating Hormone 3.02 uIU/mL (0.55-4.78); Total Protein 6.7 gm/dL (5.7-8.2); eGFR 51 See Note
== END 2024-04-23 23:59 | disposition home or self-care (01) ==
LOC: SCTC 08:53
PROVIDERS: Internal Medicine Hematology & Oncology; PCP Physician Assistant; Referring Provider Physician Assistant; Visit Provider Radiology Therapeutic Radiology
DX: Z51.0 Encounter for antineoplastic radiation therapy (principal); Z51.11 Encounter for antineoplastic chemotherapy; C34.12 Malignant neoplasm of upper lobe, left bronchus or lung; E83.52 Hypercalcemia; F17.210 Nicotine dependence, cigarettes, uncomplicated; Z71.6 Tobacco abuse counseling; E66.9 Obesity, unspecified; Z68.30 Body mass index [BMI] 30.0-30.9, adult
CPT/HCPCS: 36591; 77373; 80053; 84443; 84481; 85025; 96413; 99212; A4216; J1642; J7040; J7050; J9271; G0463

== ENCOUNTER → 2024-04-27 | Outpatient (CLI) | payer OTHER, SELFPAY ==
--- NOTE | 2024-04-27 14:30 | XR_ITS ---
Examination: CT chest with intravenous contrast 2-D sagittal and coronal reconstructions Exam date and time: April 27, 2024 [address] chest November 27, 2023 INDICATIONS: Diagnosis malignant neoplasm upper lobe left bronchus or lung, restaging, coughing 6 years, 29 mm pulmonary mass posterior segment right upper lobe, 31 mm pulmonary mass lingular segment left upper lobe, 4 mm pulmonary nodule right lower lobe, 2 mm pulmonary nodule right upper lobe on CT chest November 27, 2023 CTDI:vol (mGy) 11.1 DLP: (mGycm) 396 Technique: Multiple axial sections of the thorax have been obtained. Sections have been obtained, 3 mm slice thickness. Mediastinal and lung density settings have been obtained. Intravenous contrast administered, 60 cc Isovue-370. 2-D sagittal, coronal images obtained. Low dose protocols were performed. One or more of the following dose reduction techniques were used; automated exposure control, adjustment of the mA and/or KV according to patient size, use of iterative reconstruction technique. Findings: No thoracic aortic aneurysm dilatation No pulmonary artery filling defects Moderate calcification left anterior descending left circumflex coronary arteries No mediastinal lymphadenopathy Bilateral pulmonary nodular disease again depicted The mass in the lingular segment 31 mm on the prior study measures 21 mm on the current exam No new pulmonary nodules No visualized liver or splenic lesion Contracted gallbladder No pancreatic or adrenal mass Partial visualization posterior right renal cyst 39 mm Severe osteopenia with chronic osteoporotic compressions and kyphoplasty at T12 T8 T7 T6 T4 IMPRESSION: Stable pulmonary nodular disease compared to the prior study Mass in the lingular segment measures 21 mm on the current study compared to 31 mm on November 27, 2023 No new pulmonary nodules
== END | disposition home or self-care (01) ==
PROVIDERS: PCP Student in an Organized Health Care Education/Training Program; Referring Provider Internal Medicine Hematology & Oncology; Visit Provider Internal Medicine Hematology & Oncology
DX: R91.8 Other nonspecific abnormal finding of lung field (principal); C34.12 Malignant neoplasm of upper lobe, left bronchus or lung
CPT/HCPCS: 71260; A4649; Q9967

== ENCOUNTER 2024-05-17 08:52 | Outpatient (RCR) | payer OTHER, SELFPAY ==
[2024-05-14 11:30] LABS: Basophils % (Auto) 1 % (0-2.5); Eosinophils # (Auto) 0.2 Thou/mm3 (0.0-0.5); Eosinophils % (Auto) 4 % (0-10); Hematocrit 40.9 % (36.0-46.0); Hemoglobin 13.9 g/dL (12.0-16.0); Immature Granulocytes % (Auto) 1 % (0-0); Immature Granulocytes Auto 0.04 Thou/mm3 (0.00-0.00); Lymphocytes # (Auto) 0.9 Thou/mm3 (1.0-4.8); Lymphocytes % (Auto) 18 % (10-50); Mean Corpuscular Hemoglobin 31.7 pg (25.0-35.0); Mean Corpuscular Volume 93 fL (80-100); Monocytes # (Auto) 0.3 Thou/mm3 (0.0-0.8); Monocytes % (Auto) 6 % (0-12); Neutrophils # (Auto) 3.7 Thou/mm3 (1.8-7.7); Neutrophils % (Auto) 70 % (37-80); Nucleated Red Blood Cell % 0 /100 WBC (0); Platelet Count 221 Thou/mm3 (140-440); RDW Standard Deviation 46.6 fL (36.4-46.3); Red Blood Count 4.39 Miln/mm3 (4.00-5.20); White Blood Count 5.3 Thou/mm3 (3.6-11.0)
[2024-05-14 11:56] LABS: Alanine Aminotransferase 13 U/L (10-49); Albumin, Serum 4.1 gm/dL (3.4-4.8); Albumin/Globulin Ratio 1.5 (1.2-2.2); Alkaline Phosphatase 97 U/L (46-116); Anion Gap 9 (7-16); Aspartate Amino Transferase 14 U/L (0-34); BUN/Creatinine Ratio 18 Ratio (12-20); Bilirubin,Total 0.4 mg/dL (0.3-1.2); Blood Urea Nitrogen 24 mg/dL (9-23); Chloride 107 mMol/L (98-107); Creatinine (Component) 1.3 mg/dL (0.6-1.3); Globulin 2.7 gm/dL (2.3-3.5); Glucose 155 mg/dL (74-106); Osmolality,Calculated 284 (275-295); Sodium 139 mMol/L (136-145); Thyroid Stimulating Hormone 2.24 uIU/mL (0.55-4.78); Total Protein 6.8 gm/dL (5.7-8.2); eGFR 42 See Note
== END 2024-05-24 23:59 | disposition home or self-care (01) ==
LOC: SCTC 08:52
PROVIDERS: PCP Student in an Organized Health Care Education/Training Program; Referring Provider Radiology Therapeutic Radiology; Visit Provider Internal Medicine Hematology & Oncology
DX: Z51.11 Encounter for antineoplastic chemotherapy (principal); C34.12 Malignant neoplasm of upper lobe, left bronchus or lung; Z92.3 Personal history of irradiation
CPT/HCPCS: 36591; 80053; 84443; 85025; 96413; 99212; A4216; J1642; J7040; J7050; J9271; G0463

== ENCOUNTER → 2024-06-14 | Outpatient (CLI) | payer OTHER, SELFPAY ==
--- NOTE | 2024-06-14 10:50 | XR_ITS ---
Examination: PA lateral chest 2 views TECHNIQUE: Upright PA lateral chest 2 views Exam date and time: June 14, 2024 1127 hours INDICATIONS: Patient fell 2 weeks ago with injury to the chest, chest pain FINDINGS: No pneumothorax Significant parenchymal disease in the lingular segment left upper lobe Right internal jugular Port-A-Cath tip satisfactory position Severe osteopenia with multiple chronic osteoporotic compressions dorsal vertebral bodies with kyphoplasty IMPRESSION: No pneumothorax Pneumonia versus parenchymal scarring lingular segment left upper lobe
== END | disposition home or self-care (01) ==
LOC: CDIM 10:31
PROVIDERS: PCP Student in an Organized Health Care Education/Training Program; Referring Provider Student in an Organized Health Care Education/Training Program; Visit Provider Student in an Organized Health Care Education/Training Program
DX: S20.20XA Contusion of thorax, unspecified, initial encounter (principal); W19.XXXA Unspecified fall, initial encounter; J18.9 Pneumonia, unspecified organism
CPT/HCPCS: 71046

== ENCOUNTER → 2024-06-18 | Outpatient (CLI) | payer OTHER, SELFPAY ==
[2024-06-18 12:33] LABS: Alanine Aminotransferase 20 U/L (10-49); Albumin, Serum 4.2 gm/dL (3.4-4.8); Albumin/Globulin Ratio 1.8 (1.2-2.2); Alkaline Phosphatase 100 U/L (46-116); Anion Gap 7 (7-16); Aspartate Amino Transferase 17 U/L (0-34); BUN/Creatinine Ratio 19 Ratio (12-20); Bilirubin,Total 0.8 mg/dL (0.3-1.2); Blood Urea Nitrogen 19 mg/dL (9-23); Calcium 9.6 mg/dL (8.3-10.6); Calcium (Corrected) 9.6 mg/dL (8.5-10.1); Carbon Dioxide 27.9 mMol/L (20.0-31.0); Chloride 106 mMol/L (98-107); Globulin 2.4 gm/dL (2.3-3.5); Glucose 155 mg/dL (74-106); Osmolality,Calculated 286 (275-295); Potassium 4.2 mMol/L (3.4-5.1); Sodium 141 mMol/L (136-145); Total Protein 6.6 gm/dL (5.7-8.2); Uric Acid 4.8 mg/dL (3.1-7.8); eGFR 57 See Note
== END | disposition home or self-care (01) ==
LOC: COPL 11:38
PROVIDERS: PCP Student in an Organized Health Care Education/Training Program; Referring Provider Student in an Organized Health Care Education/Training Program; Visit Provider Student in an Organized Health Care Education/Training Program
DX: N18.1 Chronic kidney disease, stage 1 (principal)
CPT/HCPCS: 36415; 80053; 84550

== ENCOUNTER 2024-07-13 10:13 | Outpatient (RCR) | payer OTHER, SELFPAY ==
--- NOTE | 2024-07-15 14:17 | CTCFLWUP_ITS ---
[facility] [address] [place], [place] [address] FOLLOW-UP NOTE Date: 07/13/2024 MR#: [id number] Name: JOHNNY WILSON : 1945 Dx: C34.12 Malignant neoplasm of upper lobe, left bronchus or lung Identification. 78-year-old lady with squamous cell CA left upper lobe. PET scan 01/20/2024 revealed 23 mm hypermetabolic pulmonary nodule posterior left upper lobe and 26 mm hypermetabolic pulm nodule lingular segment left upper lobe. Received SBRT to both sites 5 fractions between 02/24/2024 through 03/30/2024. Patient tolerated treatment well. Had limited Keytruda last received in April 2024, but apparently elected to stop taking it due to side effect concerns. Developed some rash in the lower extremities. CT of chest 04/27/2024 with mass in lingular segment smaller 21 mm compared to [address] As I see patient today she appears comfortable lungs are clear. Assessment.1. Prior SBRT to 2 lesions in left chest completed 03/30/2024 with apparent satisfactory response according to most recent CT 04/27/2024. 2.Will get PET scan before next visit. 3. Currently on hold regarding Keytruda which she will speak with Dr. Green about. Electronically signed by: Eugene Dowell M.D. 07/13/2024 11:23 AM
== END 2024-07-24 23:59 | disposition home or self-care (01) ==
LOC: SCTC 10:13
PROVIDERS: PCP Student in an Organized Health Care Education/Training Program; Referring Provider Student in an Organized Health Care Education/Training Program; Visit Provider Internal Medicine Hematology & Oncology
DX: C34.12 Malignant neoplasm of upper lobe, left bronchus or lung (principal); Z92.3 Personal history of irradiation
CPT/HCPCS: 99213; G0463

== ENCOUNTER → 2024-07-20 | Outpatient (CLI) | payer OTHER, SELFPAY ==
[2024-07-20 14:16] LABS: Basophils % (Auto) 0 % (0-2.5); Eosinophils % (Auto) 0 % (0-10); Hematocrit 42.1 % (36.0-46.0); Hemoglobin 14.6 g/dL (12.0-16.0); Immature Granulocytes % (Auto) 1 % (0-0); Immature Granulocytes Auto 0.06 Thou/mm3 (0.00-0.00); Lymphocytes # (Auto) 0.8 Thou/mm3 (1.0-4.8); Lymphocytes % (Auto) 7 % (10-50); Mean Corpuscular HGB Conc 34.7 g/dl (31.0-37.0); Mean Corpuscular Hemoglobin 32.4 pg (25.0-35.0); Mean Corpuscular Volume 93 fL (80-100); Monocytes # (Auto) 0.5 Thou/mm3 (0.0-0.8); Monocytes % (Auto) 4 % (0-12); Neutrophils # (Auto) 9.3 Thou/mm3 (1.8-7.7); Neutrophils % (Auto) 87 % (37-80); Nucleated Red Blood Cell % 0 /100 WBC (0); Platelet Count 193 Thou/mm3 (140-440); RDW Standard Deviation 51.3 fL (36.4-46.3); Red Blood Count 4.51 Miln/mm3 (4.00-5.20); White Blood Count 10.7 Thou/mm3 (3.6-11.0)
[2024-07-20 14:31] LABS: Alanine Aminotransferase 15 U/L (10-49); Albumin, Serum 4.1 gm/dL (3.4-4.8); Albumin/Globulin Ratio 2.1 (1.2-2.2); Alkaline Phosphatase 88 U/L (46-116); Anion Gap 10 (7-16); Aspartate Amino Transferase 17 U/L (0-34); BUN/Creatinine Ratio 20 Ratio (12-20); Bilirubin,Total 0.5 mg/dL (0.3-1.2); Blood Urea Nitrogen 24 mg/dL (9-23); Calcium 9.4 mg/dL (8.3-10.6); Calcium (Corrected) 9.4 mg/dL (8.5-10.1); Carbon Dioxide 25.8 mMol/L (20.0-31.0); Chloride 107 mMol/L (98-107); Creatinine (Component) 1.2 mg/dL (0.6-1.3); Glucose 150 mg/dL (74-106); Osmolality,Calculated 291 (275-295); Potassium 3.6 mMol/L (3.4-5.1); Sodium 143 mMol/L (136-145); Total Protein 6.1 gm/dL (5.7-8.2); eGFR 46 See Note
== END | disposition home or self-care (01) ==
LOC: SCTO 13:35
PROVIDERS: PCP Student in an Organized Health Care Education/Training Program; Referring Provider Radiology Therapeutic Radiology; Visit Provider Radiology Therapeutic Radiology
DX: C34.12 Malignant neoplasm of upper lobe, left bronchus or lung (principal)
CPT/HCPCS: 36415; 80053; 85025

== ENCOUNTER 2024-08-12 11:20 | Outpatient (RCR) | payer OTHER, SELFPAY ==
--- NOTE | 2024-08-12 14:59 | CTCFLWUP_ITS ---
Patient: JOHNNY WILSON : 1945 Page 2 of 2 FOLLOW UP NOTE DATE OF SERVICE: 08/12/2024 NAME: JOHNNY WILSON ACCOUNT: [id number] : 1945 AGE: 78 INTERVAL HISTORY: Patient is here to follow-up on her lung cancer. Patient was given adjuvant immunotherapy with Keytruda and last dose was in April 2024. Patient received SBRT to her bilateral nodules. Patient stopped Keytruda since her last dose in April 2024 secondary to rash and itchiness. Patient still has some itchiness and mild rash. ONCOLOGY HISTORY: DIAGNOSIS: Malignant neoplasm of upper lobe, left bronchus or lung [ICD10] C34.12 DATE OF DIAGNOSIS: 01/20/2024 STAGE/TNM: Stage II TREATMENT HISTORY: Care?Plan Start?Date Cycle Day Intent KEYTRUDA?200 04/05/2024 1 21 Palliative Last dose in April 2024 HISTORY OF PRESENT ILLNESS: 78-year-old woman with extensive smoking history with a new diagnosis of lung cancer. Patient has been smoking about 2 packs a day for 50 years and recently reduced to 1 pack a day. Patient is a current smoker. 01/20/[address] scan showed 2 nodules in the left upper lobe. 23 mm hypermetabolic pulmonary nodule in the posterior left upper lobe and 26 mm hypermetabolic pulmonary nodule lingular segment left upper lobe no other hypermetabolic mediastinal lymphadenopathy 12/31/2023 pathology showed left lung biopsy with squamous cell cancer. No targetable mutations. Tumor mutation burden high OTHER MEDICAL HISTORY/CONDITIONS: Squamous cell left lung - dx 11/27/23 HTN COPD HX BLADDER CANCER - TREATED AGO RIGHT HIP SURGERY - 21/2 YRS AGO UTERINE ABLATION - 7 YRS AGO CRUSHED VERTERAE REPAIN - 7 YRS AGO X 2 - 50 YRS AGO BILAT TUBAL LIGATION APPENDECTOMY - CHILD T and A CHILD FAMILY HISTORY: Cancer History - Father - SKIN Cancer History - - MATERNAL GRANDMOTHER UTERINE SOCIAL HISTORY: Occupational History - RETIRED TEACHER Education Level - College Graduate, Master's degree Exercise Regularly - No Marital Status - Single Tobacco Use Note - SMOKED 1 PPD X 50YRS - SMOKING 10 CIGARETTES/DAY NOW ETOH Use Note - DENIES Drug Note - DENIES 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 albuterol sulfate - 2.5 mg /3 mL (0.083 4 ) Every 4 Hours 2. furosemide - 20 mg 1 tab Every other day 3. hydrocortisone - 1 % 2 gm Daily 4. hydrOXYzine HCl - 50 mg 1 tab Daily 5. Leg Cramp Relief - 2 Capsule As needed 6. lorazepam - 0.5 mg 1 tab As directed 7. losartan - 50 mg 0.5 tab Daily 8. Paxil - 10 mg 1 tab Daily 9. traZODone - 150 mg 1 tab Every day before sleep Medications Last Reconciled by Nohelia Mcfadden MA on 08/12/2024 ALLERGIES: No Known Drug Allergies REVIEW OF SYSTEMS: A complete 14-point review of systems was performed and is negative except as noted in interval history. PHYSICAL EXAMINATION: VITAL SIGNS: Temperature?98.5, B/P?116/66, Oxygen?Saturation?94% Weight?142?lbs (Change?since?07/13/24:?-8?lbs) PAIN: 0 - No pain ECOG Performance Status: 1 - Symptomatic; ambulatory; restricted in strenuous activity GENERAL APPEARANCE: Appears well, in no apparent distress, appropriately interactive. HEENT: Normocephalic, no temporal wasting, normal conjunctiva, no scleral icterus, normal hearing, lips without lesions, neck normal range of motion. CARDIOVASCULAR: Not assessed. PULMONARY: Normal respiratory effort, no respiratory distress or use of accessory muscles, speaking in full sentences, no tachypnea. EXTREMITIES: No pedal edema or cyanosis. SKIN scattered punctate rashes NEUROLOGIC: Alert and oriented x4. PSHYCHIATRIC: Appropriate affect, mood normal, behavior normal, intact thought and speech. LABORATORY DATA: I have personally reviewed and interpreted each of the patient?s relevant lab tests, abnormal findings are below: Date 05/14/24 06/18/24 07/20/24 ??WHITE?BLOOD?COUNT?(Thou/mm3) 5.3 ? 10.7 ??RED?BLOOD?COUNT?(Miln/mm3) 4.39 ? 4.51 ??HEMOGLOBIN?(gm/dl) 13.9 ? 14.6 ??HEMATOCRIT?(%) 40.9 ? 42.1 ??PLATELET?COUNT?(Thou/mm3) 221 ? 193 ??NEUTROPHILS?%,?AUTO?(%) 70 ? 87?H ??LYMPH?%,?AUTO?(%) 18 ? 7?L ??NEUTROPHILS,?AUTO?(Thou/mm3) 3.7 ? 9.3?H ??GLUCOSE,RANDOM?(mg/dL) ? 155?H 150?H ??BLOOD?UREA?NITROGEN?(mg/dL) ? 19 24?H ??CREATININE?(mg/dL) ? 1.00 1.20 ??SODIUM?(mmol/L) ? 141 143 ??POTASSIUM?(mmol/L) ? 4.2 3.6 ??CHLORIDE?(mmol/L) ? 106 107 ??CrCl?(CandG)?(ml/min) ? 41.49 34.02 ??AST/SGOT?(Unit/L) ? 17 17 ??ALT/SGPT?(Unit/L) ? 20 15 ??ALKALINE?PHOSPHATASE?(Unit/L) ? 100 88 ??BILIRUBIN,?TOTAL?(mg/dL) ? 0.8 0.5 ??PROTEIN?TOTAL?(gm/dl) ? 6.6 6.1 ??ALBUMIN,?SERUM?(gm/dl) ? 4.2 4.1 ??GLOBULIN?(gm/dl) ? 2.4 2.0?L ??ALBUMIN/GLOBULIN?RATIO ? 1.8 2.1 ??CALCIUM,?SERUM?(mg/dL) ? 9.6 9.4 ??CALCIUM?SERUM?(CORRECTED)?(mg/dL) ? 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 at least stage II left upper lobe cancer Patient have 2 lung nodules in the same lobe thus making T3 no lymph nodes seen in the PET CT scan Patient have a chronic smoking history as well as advanced age Patient completed EBRT Received 3 doses with Keytruda but could not tolerate after April 2024 04/27/2024 CT scan showed stable pulmonary nodular disease compared to the prior study mass in the lingular segment measures 21 mm on the current study compared to 31 mm in November 2023 and no new nodules Patient already have a PET CT scan scheduled we will follow-up on the same #2 rash Prescribed hydrocortisone cream and hydralazine for itching Patient advised to take only half tablet and then go on 1 tablet if needed RTC in 2 weeks for follow-up ORDERS: Order # Description [id number] Comprehensive Metabolic Panel - 12 + CBC with Auto Diff + [id number] MD Follow Up 2 Week RETURN TO CLINIC: BILLING AND COMPLIANCE: I reviewed external records from providers outside my specialty as summarized above. I spent a total of 50 minutes on this patient?s care on the day of their visit excluding time spent related to any billed procedures. This time includes time spent with the patient as well as time spent documenting in the medical record, reviewing patients records and tests, obtaining history, placing orders, communicating with other healthcare professionals, counseling the patient, family or caregiver, and/or care coordination for the diagnoses above. Electronically Signed by: Gomez Green MD T: 2:56 PM CC: Aris? PCP: Michael Anaya Referring: Michael Anaya This document was completed utilizing speech recognition software. Grammatical errors, random word insertions, pronoun errors, and incomplete sentences are an occasional consequence of this system due to software limitations, ambient noise, and hardware issues. Any formal questions or concerns about the content, text or information contained within the body of this dictation should be directly addressed to the provider for clarification.
== END 2024-08-23 23:59 | disposition home or self-care (01) ==
LOC: SCTC 11:20
PROVIDERS: PCP Internal Medicine; Referring Provider Internal Medicine; Visit Provider Internal Medicine Hematology & Oncology
DX: C34.12 Malignant neoplasm of upper lobe, left bronchus or lung (principal); R21 Rash and other nonspecific skin eruption
CPT/HCPCS: 99212; G0463

== ENCOUNTER → 2024-08-17 | Outpatient (CLI) | payer OTHER, SELFPAY ==
--- NOTE | 2024-08-17 08:45 | XR_ITS ---
EXAMINATION: PET/CT FUSION SKULL TO THIGH EXAM DATE AND TIME: August 18, [address] chest report 2024, PET/CT scan January 20, 2024 INDICATIONS: Diagnosis lung cancer post treatment restaging CTDI:vol (mGy) 4.69 DLP: (mGycm) 186.56 PROCEDURE: 16.5 mCi FDG was administered intravenously To allow for distribution and uptake of radiotracer, the patient was allowed to rest quietly in a shielded room. Imaging was performed on an integrated 16-slice PET/CT scanner, with scanning from the skull base to the mid thigh. Serum blood glucose at the time of the injection was measured 129 mg/dL. CT scanning was performed without oral or intravenous contrast material. FINDINGS: Head and Neck: There is no marco a hypermetabolism in the neck. The visualized portions of the brain are normal in appearance on CT. Chest: Non hypermetabolic 20 mm pulmonary nodule left upper lobe Non hypermetabolic 26 mm pulmonary nodule lingular segment Abdomen and Pelvis: There is no marco a hypermetabolism in retroperitoneal or pelvic chains. The spleen is normal in size and FDG avidity. Musculoskeletal: Marrow uptake is within normal range. IMPRESSION: Compared to the PET CT scan January 20, 2024: Stable pulmonary nodule left upper lobe 20 mm lingular segment 26 mm which are not currently non hypermetabolic No new pulmonary nodules
== END | disposition home or self-care (01) ==
LOC: CDIM 08:22
PROVIDERS: PCP Radiology Therapeutic Radiology; Referring Provider Radiology Therapeutic Radiology; Visit Provider Radiology Therapeutic Radiology
DX: C34.12 Malignant neoplasm of upper lobe, left bronchus or lung (principal); R91.1 Solitary pulmonary nodule
CPT/HCPCS: 78815; A9552

== ENCOUNTER 2024-10-13 09:56 | Outpatient (RCR) | payer OTHER, SELFPAY ==
--- NOTE | 2024-10-13 10:31 | CTCFLWUP_ITS ---
[facility] [address] [place], [place] [address] FOLLOW-UP NOTE Date: 10/13/2024 MR#: [id number] Name: JOHNNY WILSON : 1945 Dx: C34.12 Malignant neoplasm of upper lobe, left bronchus or lung Identification. 79-year-old lady with squamous of CA left upper lobe. PET scan 01/20/2024 revealed 23 mm hypermetabolic pulmonary nodule left upper lobe and 26 mm hypermetabolic pulmonary nodule lingular segment left upper lobe. Received SBRT to both sites 5 fractions between 02/24/2024 through 03/30/2025. Patient tolerated treatment well. Also received limited Keytruda 3 doses this spring but stopped due to side effects, and patient's preference. CT scan of the chest 04/27/2024 showed mass in the lingula somewhat smaller with stable pulmonary nodules disease compared to prior study. PET scan 08/17/2024 showed stable pulmonary nodule left upper lobe 20 mm and lingular segment 26 mm which are currently non-hypermetabolic with no new nodules. Patient appeared well with no problems breathing. Lungs clear Assessment. Good response to SBRT earlier this year. It could take up to a year or longer to respond completely to SBRT. The lesions appear smaller and/for less hypermetabolic. Will see her again in 4 months time. Electronically signed by: Eugene Dowell M.D. 10/13/2024 10:29 AM
== END 2024-10-24 23:59 | disposition home or self-care (01) ==
LOC: SCTC 09:56
PROVIDERS: PCP Student in an Organized Health Care Education/Training Program; Referring Provider Student in an Organized Health Care Education/Training Program; Visit Provider Radiology Therapeutic Radiology
DX: C34.12 Malignant neoplasm of upper lobe, left bronchus or lung (principal); Z92.3 Personal history of irradiation
CPT/HCPCS: 99213; G0463

== ENCOUNTER → 2024-11-05 | Outpatient (CLI) | payer OTHER, SELFPAY ==
[2024-11-05 10:35] LABS: Basophils # (Auto) 0.0 Thou/mm3 (0.0-0.2); Basophils % (Auto) 1 % (0-2.5); Eosinophils # (Auto) 0.3 Thou/mm3 (0.0-0.5); Eosinophils % (Auto) 4 % (0-10); Hematocrit 45.7 % (36.0-46.0); Hemoglobin 15.5 g/dL (12.0-16.0); Immature Granulocytes Auto 0.07 Thou/mm3 (0.00-0.00); Lymphocytes # (Auto) 1.2 Thou/mm3 (1.0-4.8); Lymphocytes % (Auto) 17 % (10-50); Mean Corpuscular HGB Conc 33.9 g/dl (31.0-37.0); Mean Corpuscular Hemoglobin 32.4 pg (25.0-35.0); Mean Corpuscular Volume 96 fL (80-100); Monocytes # (Auto) 0.5 Thou/mm3 (0.0-0.8); Monocytes % (Auto) 6 % (0-12); Neutrophils # (Auto) 5.0 Thou/mm3 (1.8-7.7); Neutrophils % (Auto) 71 % (37-80); Nucleated Red Blood Cell # 0.00 Thou/mm3 (0.00-0.00); Nucleated Red Blood Cell % 0 /100 WBC (0); Platelet Count 198 Thou/mm3 (140-440); RDW Standard Deviation 52.4 fL (36.4-46.3); Red Blood Count 4.78 Miln/mm3 (4.00-5.20); White Blood Count 7.0 Thou/mm3 (3.6-11.0)
[2024-11-05 10:44] LABS: Glucose Estimated Average 114 mg/dL (80-131); Hemoglobin A1C 5.6 % Hgb (4.8-6.0)
[2024-11-05 10:47] LABS: Alanine Aminotransferase 20 U/L (10-49); Albumin, Serum 4.3 gm/dL (3.4-4.8); Albumin/Globulin Ratio 1.7 (1.2-2.2); Alkaline Phosphatase 101 U/L (46-116); Anion Gap 10 (7-16); Aspartate Amino Transferase 19 U/L (0-34); BUN/Creatinine Ratio 13 Ratio (12-20); Bilirubin,Total 0.7 mg/dL (0.3-1.2); Blood Urea Nitrogen 13 mg/dL (9-23); Calcium 10.1 mg/dL (8.3-10.6); Calcium (Corrected) 10.1 mg/dL (8.5-10.1); Carbon Dioxide 27.6 mMol/L (20.0-31.0); Cardiac Risk Estimate 3.0 RATIO (3.7-5.6); Chloride 103 mMol/L (98-107); Cholesterol 207 mg/dL (132-200); Creatinine (Component) 1.0 mg/dL (0.6-1.3); Globulin 2.5 gm/dL (2.3-3.5); Glucose 130 mg/dL (74-106); HDL Cholesterol 68 mg/dL (40-60); LDL Cholesterol,Calculated 116 mg/dL (0-130); Osmolality,Calculated 283 (275-295); Potassium 3.6 mMol/L (3.4-5.1); Sodium 141 mMol/L (136-145); Total Protein 6.8 gm/dL (5.7-8.2); Triglycerides 117 mg/dL (30-150); eGFR 57 See Note
[2024-11-05 11:12] LABS: Creatinine MALB Rnd Ur 133 mg/dL (30-125); Microalbumin Creat Ratio 139 mg/gCrea (<30); Microalbumin, Random Urine 185 mg/L (0-300)
== END | disposition home or self-care (01) ==
LOC: COPL 09:14
PROVIDERS: PCP Student in an Organized Health Care Education/Training Program; Referring Provider Student in an Organized Health Care Education/Training Program; Visit Provider Student in an Organized Health Care Education/Training Program
DX: E11.22 Type 2 diabetes mellitus with diabetic chronic kidney disease (principal); N18.9 Chronic kidney disease, unspecified; E78.2 Mixed hyperlipidemia
CPT/HCPCS: 36415; 80053; 80061; 82043; 82570; 83036; 85025

== ENCOUNTER → 2024-12-24 | Outpatient (CLI) | payer OTHER, SELFPAY ==
[2024-12-24 10:10] LABS: Albumin, Serum 4.3 gm/dL (3.4-4.8); Anion Gap 8 (7-16); BUN/Creatinine Ratio 16 Ratio (12-20); Blood Urea Nitrogen 18 mg/dL (9-23); Calcium 10.0 mg/dL (8.3-10.6); Calcium (Corrected) 10.0 mg/dL (8.5-10.1); Carbon Dioxide 28.0 mMol/L (20.0-31.0); Chloride 108 mMol/L (98-107); Creatinine (Component) 1.1 mg/dL (0.6-1.3); Glucose 123 mg/dL (74-106); Osmolality,Calculated 289 (275-295); Phosphorous 3.4 mg/dL (2.4-5.1); Potassium 4.5 mMol/L (3.4-5.1); Sodium 144 mMol/L (136-145); eGFR 50 See Note
== END | disposition home or self-care (01) ==
LOC: COPL 08:56
PROVIDERS: PCP Student in an Organized Health Care Education/Training Program; Referring Provider Student in an Organized Health Care Education/Training Program; Visit Provider Student in an Organized Health Care Education/Training Program
DX: E11.22 Type 2 diabetes mellitus with diabetic chronic kidney disease (principal); N18.9 Chronic kidney disease, unspecified
CPT/HCPCS: 36415; 80069

== ENCOUNTER 2025-02-08 07:50 | Outpatient (RCR) | payer OTHER, SELFPAY ==
--- NOTE | 2025-02-08 09:12 | CTCFLWUP_ITS ---
[facility] [address] [place], [place] [address] FOLLOW-UP NOTE Date: 02/08/2025 MR#: [id number] Name: JOHNNY WILSON : 1945 Dx: C34.12 Malignant neoplasm of upper lobe, left bronchus or lung Identification. Patient with squamous cell left upper lobe. PET scan 01/20/2024 revealed 23 mm hypermetabolic pulmonary nodule posterior left upper lobe and 26 mm hypermetabolic pulm nodule lingular segment of left upper lobe. Received SBRT to both sites 5 fractions between 02/24/2024 through 03/30/[address] 04/27/2024 showed smaller lesions in the treated sites. PET scan 08/17/2024 showed stable pulmonary nodule left upper lobe 20 mm lingular segment 26 mm which are not currently hypermetabolic. There are also no new pulmonary nodules. Patient has declined to be followed by medical oncologist stating that she would refuse any systemic therapy in any case. As I examined her today there are some wheeze left greater than right and some bony tenderness in her rib cage and hips. Assessment. 1.History of squamous cell CA left upper lobe 2 sites, left upper lobe both treated with SBRT completed March 30, 2024 5000 cGy. Patient declined any systemic therapy, or follow-up with medical oncologist. 2. Good response noted both on CT of 04/27/2024 and PET of 07/28/2024. 3. Has been experiencing some pain in the rib cage and pelvis and some shortness of breath. 4. Will get CT of the chest abdomen and bone scan. PET scan reportedly with problematic with her insurance situation. 5. I will see her back in 2 months. Electronically signed by: Eugene Dowell M.D. 02/08/2025 9:10 AM
== END 2025-02-23 23:59 | disposition home or self-care (01) ==
LOC: SCTC 07:50
PROVIDERS: PCP Student in an Organized Health Care Education/Training Program; Referring Provider Student in an Organized Health Care Education/Training Program; Visit Provider Radiology Therapeutic Radiology
DX: C34.12 Malignant neoplasm of upper lobe, left bronchus or lung (principal); Z92.3 Personal history of irradiation; R07.89 Other chest pain
CPT/HCPCS: 99213; G0463